=== PATIENT | female | born 1960 | race Caucasian/White ===

== ENCOUNTER 2021-03-03 01:57 | Day surgery (SDC) | payer BC, SELFPAY ==
[2021-02-17 14:51] VITALS: BMI 30.3
--- NOTE | 2021-03-02 14:55 | PM.HPGS ---
History of Present Illness History of Present Illness Consent: Risks, benefits, and alternatives have been discussed and questions answered. Patient agrees to proceed with procedure. Chief complaint: neoplasm screening Narrative: Grabiel Haider is a 60 year old female referred for colon cancer screening. Review of Systems Review of Systems: All systems reviewed & are unremarkable except as noted in HPI and below [facility] Social History Social History Living arrangements: with family Gender identity (if verbalized by the patient): Female Spiritual care concerns: No Meds Home Medications and Allergies Home Medications Medication Instructions Recorded Confirmed Type sodium,potassium,mag sulfates See Rx Instructions .ROUTE 02/10/21 Rx [Suprep Bowel Prep Kit] .COMPLEX #1 ml Prilosec OTC 20 mg PO DAILY 02/17/21 03/03/21 History meloxicam 15 mg PO DAILY 02/17/21 03/03/21 History Allergies Allergy/AdvReac Type Severity Reaction Status Date / Time No Known Allergies Allergy Verified 03/03/21 10:14 Exam Resp: Auscultation: clear to auscultation bilaterally Cardio: Rate: regular rate Rhythm: regular rhythm GI: GI Palp: Yes Soft to palpation and No Tenderness to palpation present (GI) Assessment and Plan Assessment and plan (1) Colon cancer screening: Code(s): Z12.11 - Encounter for screening for malignant neoplasm of colon Status: Acute Assessment and Plan: ColoColonoscopy with possible biopsy or polypectomy or cautery or injection of substances.noscopy with possible biopsy or polypectomy or cautery or injection of substances.
[2021-03-03 10:26] VITALS: BP 130/87; PULSE 75; RESP 18; TEMP 35.9; O2SAT 100; BMI 29.7
[2021-03-03] MEDS: LACTATED RINGERS 1,000 ML 150 ML IV CONT (10:40)
--- NOTE | 2021-03-03 11:03 | WPDANESEPPF ---
Anes - Initial Pre Proc Eval Procedure: Operation Date: 03/03/21 11:30 Proposed Procedures p Screening Colonoscopy - Sherman Sánchez MD Date/Time: 03/03/21 11:03 Surgeon: Sherman Sánchez MD Pre Op Diagnosis: neoplasm screening Patient Data Age: 60 Gender: F Height: 1.6 m Weight: 76.1 kg Last Vital Signs Temp 35.9 C L 03/03/21 10:26 Pulse 75 03/03/21 10:26 Resp 18 03/03/21 10:26 BP 130/87 03/03/21 10:26 Pulse Ox 100 03/03/21 10:26 Allergies Allergy/AdvReac Type Severity Reaction Status Date / Time No Known Allergies Allergy Verified 03/03/21 10:14 Home Medications Medication Instructions Recorded Confirmed Type sodium,potassium,mag sulfates See Rx Instructions .ROUTE 02/10/21 Rx [Suprep Bowel Prep Kit] .COMPLEX #1 ml Prilosec OTC 20 mg PO DAILY 02/17/21 03/03/21 History meloxicam 15 mg PO DAILY 02/17/21 03/03/21 History Patient hx anesthesia problems: none Family hx anesthesia problems: none PMFSH Past Medical History Medical History (Updated 03/03/21 @ 11:04 by Dutch March MD) Obesity Sarcoma Surgical History Surgical History (Updated 03/03/21 @ 11:04 by Dutch March MD) H/O colonoscopy Social History Social History Living arrangements: with family Gender identity (if verbalized by the patient): Female Spiritual care concerns: No Anes - Eval Final PreProcedure Day of Procedure 03/03/21 11:03 Patient weight: obese Heart: regular rate and rhythm Lungs: clear to auscultation Airway: Mallampati scale class 1 Neurological: alert and oriented Last oral intake: >/= 8 hours ASA classification: II Emergent: no Anesthetic plan: proceed Anesthesia type and monitoring: general GIVS and standard monitoring Informed Consent: The patient's anesthetic plan and its attendant risks and benefits were discussed with the patient/family/POA. Questions were solicited and answers provided to the satisfaction of the patient/family/POA.
[2021-03-03 11:51] VITALS: BP 132/79; PULSE 73; RESP 19; O2SAT 98
[2021-03-03 12:01] VITALS: BP 118/77; PULSE 77; RESP 24; O2SAT 97
[2021-03-03 12:11] VITALS: BP 127/86; PULSE 71; RESP 18; O2SAT 98
== END 2021-03-03 12:26 | disposition home or self-care (01) ==
PROVIDERS: PCP Internal Medicine; Visit Provider Internal Medicine Gastroenterology
PROC: 0DJD8ZZ Inspection of Lower Intestinal Tract, Via Natural or Artificial Opening Endoscopic (ICD-10-PCS; CPT 45378; principal; 2021-03-03 11:30)
DX: Z12.11 Encounter for screening for malignant neoplasm of colon (principal); K57.30 Diverticulosis of large intestine without perforation or abscess without bleeding; E66.9 Obesity, unspecified; Z68.29 Body mass index [BMI] 29.0-29.9, adult
CPT/HCPCS: 45378; J2704; J7120

== ENCOUNTER 2024-06-29 19:19 | Emergency (ER) | payer MEDICARE, OTHER, SELFPAY ==
--- NOTE | ~2024-06-29 | CT_ITS ---
EXAMINATION: CT brain wo con DATE: 06/29/2024 20:04 INDICATION: Sudden extreme headache TECHNIQUE: Computed tomography (CT) of the head was performed without intravenous contrast. The mA wa s adjusted according to patient size. Iterative reconstruction technique was employed. Exam dose: 68 1.00 mGy-cm total exam DLP. COMPARISON: None FINDINGS: There is bilateral vertebral artery and carotid siphon internal carotid artery calcificatio n. There is nonspecific diminished attenuation the cerebral white matter, likely due to chronic small ve ssel ischemic changes. No intracranial mass lesion or hemorrhage or cerebrovascular accident, midline shift or mass effect i s evident. No subdural or epidural hematoma. There is prominent mucoperiosteal thickening of the right maxillary sinus. The paranasal sinuses othe rwise are normally developed and aerated. No fracture or bone destruction of the cranial vault. IMPRESSION: Cerebral atherosclerosis and chronic small vessel ischemic changes of the cerebral white matter No acute intracranial finding Reviewed, dictated and finalized at [facility] Reviewed, dictated and finalized at [facility] [employer]
[2024-06-29 19:28] VITALS: BP 172/73; PULSE 86; RESP 18; TEMP 36.9; O2SAT 100
[2024-06-29 23:02] VITALS: BP 161/88; PULSE 72; RESP 20; O2SAT 100
[2024-06-30] VITALS (11 sets, daily range): BP systolic 128–149; BP diastolic 71–79; PULSE 70–81; RESP 17–25; O2SAT 94–100
[2024-06-30] MEDS: diazePAM INJ (*CRX) 10 MG/2 ML SYRINGE 5 MG IM (00:04)
--- NOTE | 2024-06-30 01:13 | ED_ITS ---
HPI - General Adult General Chief complaint: Neck Pain/Injury Stated complaint: LEFT neck pain shooting to head x1d Time Seen by Provider: 06/29/24 23:07 History of Present Illness HPI narrative: This is a 64-year-old female presenting ED with chief complaint of headache. Patient is having shooting pains from the back of her left side of her head up over the top her head. It is worse when she touches her hair on that side. She has had this occur in the past but typically it resolved on her own. She has taken Excedrin minimal relief. No loss of conscious or neurologic deficits. No visual changes. No fevers or neck pain. Related Data Home Medications Medication Instructions Recorded Confirmed Prilosec OTC 20 mg PO DAILY 02/17/21 03/03/21 meloxicam 15 mg tablet 15 mg PO DAILY 02/17/21 03/03/21 Allergies Allergy/AdvReac Type Severity Reaction Status Date / Time No Known Allergies Allergy Verified 06/29/24 19:22 [facility] Past Medical History Medical History Obesity Sarcoma Surgical History Surgical History H/O colonoscopy Social History Social History Living arrangements: with family Gender identity (if verbalized by the patient): Female Spiritual care concerns: No Exam Narrative: APPEARANCE: No apparent distress. Head: atraumatic. EYES: EOMI, NOSE: Atraumatic NECK: Trachea midline RESPIRATORY: No increased rate of breathing CARDIOVASCULAR: RRR, ABDOMINAL: Non-distended MUSCULOSKELETAl: No obvious deformities NEURO: Alert. Cranial nerves 2-12 grossly intact. Sensation light touch, motor function cerebellar function intact for 4 extremities. Gait exam was normal. SKIN:: Pain is triggered by touching the patient is here PSYCHIATRIC: Normal affect Course Vital Signs Vital signs: Vital Signs Temperature 98.4 F 06/29/24 19:28 Pulse Rate 86 06/29/24 19:28 Respiratory Rate 18 06/29/24 19:28 Blood Pressure 172/73 H 06/29/24 19:28 Pulse Oximetry 100 06/29/24 19:28 Oxygen Delivery Room Air 06/29/24 19:28 Temperature 98.4 F 06/29/24 19:28 Pulse Rate 75 06/30/24 00:45 Respiratory Rate 20 06/30/24 00:45 Blood Pressure 149/79 H 06/30/24 00:31 Pulse Oximetry 95 06/30/24 00:45 Oxygen Delivery Room Air 06/29/24 19:28 Medical Decision Making MDM Narrative Medical decision making narrative: -Course: 64-year-old female presenting with pain coming up over the back of her scalp. History and physical consistent with occipital nerve block. Occipital nerve block was performed with improvement in condition. However after the block was performed the patient had a panic attack requiring a dose of Valium. She is now feeling much better. She will be discharged follow-up with primary care physician. Vital Signs Vital Signs: Vital Signs Temperature 98.4 F 06/29/24 19:28 Pulse Rate 86 06/29/24 19:28 Respiratory Rate 18 06/29/24 19:28 Blood Pressure 172/73 H 06/29/24 19:28 Pulse Oximetry 100 06/29/24 19:28 Oxygen Delivery Room Air 06/29/24 19:28 Temperature 98.4 F 06/29/24 19:28 Pulse Rate 75 06/30/24 00:45 Respiratory Rate 20 06/30/24 00:45 Blood Pressure 149/79 H 06/30/24 00:31 Pulse Oximetry 95 06/30/24 00:45 Oxygen Delivery Room Air 06/29/24 19:28 Discharge Plan Discharge Clinical Impression: Occipital neuralgia Patient Disposition: Home, Self-Care Condition: Stable Instructions: Antibiotic Form, Acute Headache (DC) Additional Instructions: You were seen in the emergency department for headache. Her headache was consistent with Occipital Neuralgia. Please follow up with your PCP for further management. Take motrin and tylenol for your headache. Return if you develop severe pain or any other neurological symptoms. Prescriptions: No Action Suprep Bowel Prep Kit 17.5-3.13-1.6 gram Recon Soln See Rx Instructions .ROUTE .COMPLEX Qty: 1 0RF Rx Instructions: DILUTE; drink full amount early evening before AND next morning at least 2 hr before procedure; follow w 960 mL water meloxicam 15 mg tablet 15 mg PO DAILY Prilosec OTC 20 mg PO DAILY Follow-up/Referrals: Tuan,Kirk Moeller MD [Primary Care Provider] - 1 Week
== END 2024-06-30 01:47 | disposition home or self-care (01) ==
PROVIDERS: Emergency Provider Emergency Medicine; PCP Internal Medicine
DX: M54.81 Occipital neuralgia (principal); E66.9 Obesity, unspecified; Z68.29 Body mass index [BMI] 29.0-29.9, adult
CPT/HCPCS: 70450; 96372; 99284; J2004; J3360